=== PATIENT | male | born 1965 | race Two or more races ===

== ENCOUNTER 2019-09-16 19:32 | Emergency (ER) | payer OTHER ==
[~2019-09-16] VITALS: Ht 152.4 cm; Wt 83.9 kg
[2019-09-16 19:38] VITALS: BP 119/85
== END 2019-09-16 20:15 | disposition home or self-care (01) ==
LOC: ER 19:37
DX: B34.9 Viral infection, unspecified (principal); J45.909 Unspecified asthma, uncomplicated

== ENCOUNTER 2020-10-10 19:04 | Emergency (ER) | payer BC, OTHER ==
[~2020-10-10] VITALS: Ht 152.4 cm; Wt 86.2 kg
--- NOTE | 2020-10-10 19:44 | NUR ---
PT BIBSELF C/O RT EYE REDNESS AND PAIN. PT AAOX4 BREATHING EVENLY AND UNLABORED. PT STATES " I CUT METAL FOR WORK, BUT I WEAR GOGGLES. MY EYE DIDNT BOTHER ME UNTIL I CAME HOME FROM WORK. I FEEL SOMETHING IN MY EYELID." PT SKIN WARM, DRY, AND INTACT. PT ATTACHED TO MONITOR AND POX. PT GIVEN CALL LIGHT WITHIN REACH
[2020-10-10] MEDS ORDERED: FLUORESCEIN SODIUM OPHTH 1 EA STRIP ONE (19:53)
[2020-10-10] MEDS: FLUORESCEIN SODIUM OPHTH 1 EA STRIP OP ONE (19:53)
[2020-10-10] MEDS: TETRACAINE HCL 0.5% OPHTALMIC 15 ML BOTTLE OP ONE (19:54)
--- NOTE | 2020-10-10 20:20 | NUR ---
PA at bedside
[2020-10-10] MEDS ORDERED: OFLO5DRO RIGHTEYE (20:41)
--- NOTE | 2020-10-10 20:43 | NUR ---
Patient discharged to home in stable condition. Written and verbal after care instructions given. Patient verbalizes understanding of instruction. Pt ambulatory with a steady gait
[2020-10-10 20:47] VITALS: BP 132/96
== END 2020-10-10 20:43 | disposition home or self-care (01) ==
LOC: ER 19:05
DX: S05.01XA Injury of conjunctiva and corneal abrasion without foreign body, right eye, initial encounter (principal); J45.909 Unspecified asthma, uncomplicated; Z79.899 Other long term (current) drug therapy; X58.XXXA Exposure to other specified factors, initial encounter; Y93.89 Activity, other specified; Y92.89 Other specified places as the place of occurrence of the external cause; Y99.8 Other external cause status

== ENCOUNTER 2022-07-10 07:55 | Outpatient (CLI) | payer BC, OTHER ==
[~2022-07-10 07:55] MED LIST: OFLO5DRO RIGHTEYE
== END 2022-07-10 23:59 | disposition home or self-care (01) ==
LOC: RAD 07:55
PROVIDERS: ATTEND Family Medicine
DX: M17.0 Bilateral primary osteoarthritis of knee (principal); M25.861 Other specified joint disorders, right knee; M25.561 Pain in right knee; M25.862 Other specified joint disorders, left knee
CPT/HCPCS: 73562

== ENCOUNTER 2022-08-26 08:52 | Outpatient (CLI) | payer BC, OTHER ==
[2022-08-26 10:02] LABS: ALBUMIN 4.2 g/dL (3.4-5.0); BILIRUBIN,DIRECT 0.2 mg/dL (0.0-0.2); BILIRUBIN,TOTAL 0.6 mg/dL (0.2-1.0); TOTAL PROTEIN, SERUM 7.2 g/dL (6.4-8.2)
== END 2022-08-26 23:59 | disposition home or self-care (01) ==
LOC: LAB 08:52
PROVIDERS: ATTEND Family Medicine
DX: K76.0 Fatty (change of) liver, not elsewhere classified (principal)
CPT/HCPCS: 36415; 80076-TC; 86317; 86709-TC; 86803; 87340

== ENCOUNTER 2022-11-22 11:34 | Emergency (ER) | payer OTHER, BC ==
[~2022-11-22] VITALS: Ht 162.6 cm; Wt 86.2 kg
--- NOTE | 2022-11-22 11:48 | NUR ---
dr merino at bedside for eval.
--- NOTE | 2022-11-22 11:50 | NUR ---
C/O LEFT EYE REDNESS AND EXCESSIVE TEARS X 4 DAYS. DENIES ANY TRAUMA pt was working at his backyard, his lLT EYE STARTED TO ICTH AND RUBBED IT 1DAY AGO, AND HE NOTICE REDNESS TODAY. AN UNRECALLED EYEDROPS WAS USED PER PT CLAIMS 1DAY PTC.
[2022-11-22] MEDS ORDERED: FLUORESCEIN SODIUM OPHTH 1 EA STRIP ONE (11:53)
--- NOTE | 2022-11-22 11:55 | NUR ---
tetracaine eye drop and fluorescein at bedside with q-tips
[2022-11-22] MEDS ORDERED: TETRACAINE HCL 0.5% OPHTALMIC 15 ML BOTTLE OP ONE (12:00)
[2022-11-22] MEDS ORDERED: FLUORESCEIN SODIUM OPHTH 1 EA STRIP OP ONE (12:00)
--- NOTE | 2022-11-22 12:40 | NUR ---
DR CARR AT BEDSIDE FOR REMOVAL OF LT EYE FOREIGN BODY
--- NOTE | 2022-11-22 13:13 | NUR ---
Patient is resting comfortably in bed with eyes closed. Easily aroused. VSS
[2022-11-22] MEDS ORDERED: ERYT3.5O9 LEFTEYE (13:25)
[2022-11-22] MEDS ORDERED: CYCL2DRO5 LEFTEYE (13:25)
--- NOTE | 2022-11-22 13:52 | NUR ---
Patient discharged to home in stable condition. Written and verbal after care instructions given. Patient verbalizes understanding of instruction.
[2022-11-22 14:11] VITALS: BP 128/71
== END 2022-11-22 14:11 | disposition home or self-care (01) ==
LOC: ER 11:43
DX: S05.02XA Injury of conjunctiva and corneal abrasion without foreign body, left eye, initial encounter (principal); H57.04 Mydriasis; H10.9 Unspecified conjunctivitis; J45.909 Unspecified asthma, uncomplicated; Z79.899 Other long term (current) drug therapy; X58.XXXA Exposure to other specified factors, initial encounter; Y93.H2 Activity, gardening and landscaping; Y92.89 Other specified places as the place of occurrence of the external cause; Y99.8 Other external cause status

== ENCOUNTER 2022-11-24 11:07 | Outpatient (CLI) | payer BC ==
[~2022-11-24 11:07] MED LIST changes: +CYCL2DRO5 LEFTEYE; +ERYT3.5O9 LEFTEYE
== END 2022-11-24 23:59 | disposition home or self-care (01) ==
LOC: CT 11:07
PROVIDERS: ATTEND Family Medicine
DX: H57.04 Mydriasis (principal)
CPT/HCPCS: 70450-TC

== ENCOUNTER 2024-04-03 18:49 | Emergency (ER) | payer BC ==
[~2024-04-03] VITALS: Ht 162.6 cm; Wt 90.7 kg
[2024-04-03 18:58] VITALS: BP 155/89; TEMP 98.4; O2SAT 99
== END 2024-04-03 19:36 | disposition home or self-care (01) ==
LOC: ER 18:53
DX: T16.2XXA Foreign body in left ear, initial encounter (principal); H92.02 Otalgia, left ear; J45.909 Unspecified asthma, uncomplicated; W44.9XXA Unspecified foreign body entering into or through a natural orifice, initial encounter; Y93.89 Activity, other specified; Y92.89 Other specified places as the place of occurrence of the external cause; Y99.8 Other external cause status

== ENCOUNTER 2025-05-25 08:58 | Outpatient (CLI) | payer BC | END 2025-05-25 23:59 | disposition home or self-care (01) | LOC: CT 08:58 | PROVIDERS: ATTEND Family Medicine | DX: J98.4 Other disorders of lung (principal); R91.1 Solitary pulmonary nodule; J98.11 Atelectasis; M47.814 Spondylosis without myelopathy or radiculopathy, thoracic region | CPT/HCPCS: 71250-TC ==

== ENCOUNTER 2025-05-28 10:43 | Outpatient (CLI) | payer BC | END 2025-05-28 23:59 | disposition home or self-care (01) | LOC: MRI 10:43 | PROVIDERS: ATTEND Family Medicine | DX: S83.242A Other tear of medial meniscus, current injury, left knee, initial encounter (principal); M25.562 Pain in left knee; M17.12 Unilateral primary osteoarthritis, left knee; X58.XXXA Exposure to other specified factors, initial encounter; Y93.89 Activity, other specified; Y92.89 Other specified places as the place of occurrence of the external cause; Y99.8 Other external cause status; M76.52 Patellar tendinitis, left knee; M25.762 Osteophyte, left knee; M25.862 Other specified joint disorders, left knee; M94.262 Chondromalacia, left knee | CPT/HCPCS: 73721-TC ==